=== PATIENT | male | born 2000 | race African-American/Black ===

== ENCOUNTER 2020-07-17 | Emergency (ER) | payer MEDICAID ==
[2020-07-17] MEDS ORDERED: MEDDOSEPAK PO (15:20)
== END 2020-07-17 15:50 | disposition home or self-care (01) ==
DX: M26.69 Other specified disorders of temporomandibular joint (principal)

== ENCOUNTER 2020-12-15 14:47 | Emergency (ER) | payer MEDICAID ==
[~2020-12-15] VITALS: Ht 175.3 cm; Wt 110.0 kg
[~2020-12-15 14:47] MED LIST: MEDDOSEPAK PO
[2020-12-15 16:43] VITALS: BP 134/81
== END 2020-12-15 16:44 | disposition home or self-care (01) ==
LOC: ED 14:47
DX: R06.02 Shortness of breath (principal); Z20.822 Contact with and (suspected) exposure to COVID-19

== ENCOUNTER 2021-07-28 15:46 | Emergency (ER) | payer MEDICAID ==
[~2021-07-28] VITALS: Ht 175.3 cm; Wt 113.0 kg
[2021-07-28 15:55] VITALS: BP 142/92
[2021-07-28 16:00] VITALS: BP 123/88
[2021-07-28] MEDS ORDERED: DOXYCYCLINE100 MG PO (16:10)
[2021-07-28 16:13] VITALS: BP 123/88
== END 2021-07-28 16:19 | disposition home or self-care (01) ==
LOC: ED 15:46
DX: L03.811 Cellulitis of head [any part, except face] (principal)